=== PATIENT | female | born 1975 | race Caucasian/White ===

== ENCOUNTER 2023-06-18 12:56 | Outpatient (CLI) | payer BC, SELFPAY ==
--- NOTE | 2023-06-18 11:11 | W.ANESCHARGE ---
Anesthesia Charges Start Date/Time Anesthesia Start Date: 06/18/23 Anesthesia Start Time: 14:05 Stop Date/Time Anesthesia Stop Date: 06/18/23 Anesthesia Stop Time: 14:35
--- NOTE | 2023-06-18 14:32 | W.ANESCHARGE ---
Anesthesia Charges Start Date/Time Anesthesia Start Date: 06/18/23 Anesthesia Start Time: 14:05 Stop Date/Time Anesthesia Stop Date: 06/18/23 Anesthesia Stop Time: 14:35
== END 2023-06-18 12:57 | disposition home or self-care (01) ==
LOC: OP CLINIC 12:57
PROVIDERS: PCP Physician Assistant; Visit Provider Surgery
DX: Z12.11 Encounter for screening for malignant neoplasm of colon (principal); K63.5 Polyp of colon
CPT/HCPCS: 00811; 45385; 77063; 77067; 80061; 81025; 82306; 82947; 84443; 88305; J2704